=== PATIENT | male | born 1990 | race Hispanic/Latino ===

== ENCOUNTER → 2020-05-17 | Day surgery (SDC) | payer OTHER ==
[~2020-05-17] MED LIST: LIDOCAINE HCL 2% LOCAL INJ 5 ML SDV VIAL INJ ONE; METOCLOPRAMIDE HCL 10 MG/2ML VIAL ONE; PANTOPRAZOLE 40 MG 10ML VIAL ONE; PROPOFOL IV EMULSION 10 MG/ML 20 ML VIAL ONE
[2020-05-17 08:30] VITALS: BP 116/86
--- NOTE | 2020-05-17 09:19 | Operative Report ---
DATE OF PROCEDURE: 05/17/2020 SURGEON: Fabricio Alberto MD PROCEDURE: EGD with biopsies. INDICATIONS FOR EGD: Upper abdominal pain, bloating. MEDICATIONS: The patient was done under MAC, please see anesthesiologist's note. PROCEDURE IN DETAIL: With the patient in the left lateral decubitus position, a flexible fiberoptic Olympus gastroscope was introduced into the esophagus under direct visualization without any difficulty. The GE junction appeared somewhat nodular and that was biopsied. There was some also patchy intense erythema in the distal esophagus. The scope was then advanced with ease into the stomach. Mucosa overlying the antrum and the body revealed some patchy erythema and low-grade edema, and biopsies were obtained and sent to stain for H. pylori. Pylorus was of normal contour and shape, was intubated with ease and the scope was advanced all the way to the second portion of the duodenum. Biopsies were obtained from the proximal second portion and the duodenal bulb to rule out sprue. The scope was then withdrawn back into the stomach and retroflexed, and mucosa overlying the fundus and the cardia appeared to be within normal limits. The scope was then straightened out, it was subsequently withdrawn, and the patient tolerated the procedure well. IMPRESSION: 1. Distal esophagitis. 2. GE junction somewhat nodular, biopsied. 3. Gastritis, biopsied, biopsies sent to stain for Helicobacter pylori. 4. Rule out sprue. PLAN: Follow up histology. Initiate Protonix 40 mg one p.o. q.a.m. before meals. Fabricio Alberto [place] [facility] [facility] [place] /[id number] cc: Chino Myers DO
== END | disposition home or self-care (01) ==
LOC: OR 05:55
PROVIDERS: ATTEND Internal Medicine Gastroenterology
DX: K29.70 Gastritis, unspecified, without bleeding (principal); K20.9 Esophagitis, unspecified; K21.9 Gastro-esophageal reflux disease without esophagitis; K59.09 Other constipation; I10 Essential (primary) hypertension; F41.9 Anxiety disorder, unspecified; F32.9 Major depressive disorder, single episode, unspecified; Z01.812 Encounter for preprocedural laboratory examination; Z11.59 Encounter for screening for other viral diseases; Z68.36 Body mass index [BMI] 36.0-36.9, adult
CPT/HCPCS: 43239; C9113; J2001; J2704; J2765; U0002

== ENCOUNTER → 2020-05-18 | Outpatient (CLI) | payer OTHER ==
--- NOTE | 2020-05-18 15:10 | Diagnostic Imaging Report ---
EXAM: Complete Abdominal Ultrasound INDICATION: ^[id number] ^[id number] ^GEN ABD PAIN COMPARISON: None. TECHNIQUE: Transverse and longitudinal images of the upper abdomen were obtained. FINDINGS: Liver: Size: 14.9 cm in the right midclavicular line, normal Appearance: Normal echogenicity, smooth contour Mass: No focal masses Spleen: Size: 10.5 cm in length, normal Echogenicity: Normal Mass: No focal masses Gallbladder: Stones/Sludge: Mobile echogenic shadowing calculus within the gallbladder lumen. Wall: 0.2 cm Appearance: No pericholecystic fluid or hydrops. Sonographic Carbajal's Sign: Negative Bile Ducts: Intrahepatic Ducts: No dilatation Extrahepatic Ducts: Common bile duct measures 0.3 cm, no dilatation Pancreas: Visualized portions of the pancreatic head, neck and proximal body are normal. Right Kidney: Size: 11.9 cm Echogenicity: Normal Parenchymal thickness: Normal Collecting System: No hydronephrosis Stone: None Cyst/Mass: None Left Kidney: Size: 12.3 cm Echogenicity: Normal Parenchymal thickness: Normal Collecting System: No hydronephrosis Stone: None Cyst/Mass: None Vessels: Aorta: Nonaneurysmal Inferior Vena Cava: Patent Main Portal Vein: 0.9 cm, normal size with hepatopetal flow. Free Fluid: No ascites or pleural effusion IMPRESSION: Cholelithiasis without sonographic findings of acute cholecystitis. Otherwise unremarkable abdominal ultrasound. Signed by: Dr. Cr Hutton M.D. on 05/18/2020 3:07 PM
== END ==
LOC: US 13:54
PROVIDERS: ATTEND Internal Medicine Gastroenterology
DX: R10.84 Generalized abdominal pain (principal)
CPT/HCPCS: 76700

== ENCOUNTER → 2020-06-08 | Outpatient (CLI) | payer OTHER ==
[~2020-06-08] MED LIST changes: -LIDOCAINE HCL 2% LOCAL INJ 5 ML SDV VIAL INJ ONE; -METOCLOPRAMIDE HCL 10 MG/2ML VIAL ONE; -PANTOPRAZOLE 40 MG 10ML VIAL ONE; +PANTOPRAZOLE SO40 MG PO; -PROPOFOL IV EMULSION 10 MG/ML 20 ML VIAL ONE
== END ==
LOC: NM 07:52
PROVIDERS: ATTEND Internal Medicine Gastroenterology
DX: K80.12 Calculus of gallbladder with acute and chronic cholecystitis without obstruction (principal)
CPT/HCPCS: 78227; A9537

== ENCOUNTER → 2020-06-22 | Day surgery (SDC) | payer OTHER ==
[2020-06-20 09:54] LABS: BASOPHILS % 0.1 % (0.0-1.0); EOSINOPHILS # (AUTO) 0.1 (0.0-0.4); EOSINOPHILS % 0.9 % (0.0-6.0); HEMATOCRIT 47.1 % (38.2-49.6); HEMOGLOBIN 15.5 g/dL (14.0-18.0); LYMPHOCYTES # (AUTO) 1.6 (1.0-3.2); MEAN CORPUSCULAR HEMOGLOBIN 28.5 pg (28-32); MEAN CORPUSCULAR HGB CONC 32.9 g/dL (31-35); MEAN CORPUSCULAR VOLUME 86.6 fL (81-99); MONOCYTES # (AUTO) 0.5 (0.2-0.8); MONOCYTES % 6.9 % (4.4-11.3); NEUTROPHILS # (AUTO) 4.7 (2.1-6.9); NEUTROPHILS % 68.8 % (38.7-80.0); PLATELET COUNT 210 x10e3/uL (140-360); RED BLOOD COUNT 5.44 x10e6/uL (4.3-5.7); RED CELL DISTRIBUTION WIDTH 12.9 % (11.7-14.4)
[2020-06-20 10:20] LABS: ALANINE AMINOTRANSFERASE 41 IU/L (0-55); ALBUMIN 4.6 g/dL (3.5-5.0); ALBUMIN/GLOBULIN RATIO 1.5 (0.8-2.0); ALKALINE PHOSPHATASE 68 IU/L (40-150); ANION GAP 11.1 mmol/L (8-16); BLOOD UREA NITROGEN 12 mg/dL (7-26); BUN/CREATININE RATIO 15 (6-25); CALCIUM 8.6 mg/dL (8.4-10.2); CARBON DIOXIDE 26 mmol/L (22-29); CHLORIDE 105 mmol/L (98-107); EST GLOMERULAR FILTRATION RATE > 60 ML/MIN (60-); GLUCOSE 94 mg/dL (74-118); POTASSIUM 4.1 mmol/L (3.5-5.1); SODIUM 138 mmol/L (136-145)
[~2020-06-22] MED LIST changes: +BUPIVACAINE 0.25% 30ML SDV INJ ONE; +DEXAMETHASONE SOD PHOS INJ 4 MG/ML VIAL ONE; +FENTANYL CITRATE/PF 100MCG/2 ML INJ ONE; +GLYCOPYRROLATE INJ 0.2 MG/ML VIAL ONE; +HYDROCODONE/APAP 7.5MG-325MG 1 EA TAB ONE; +KETOROLAC TROMETHAMINE 30 MG/ML VIAL ONE; +LIDOCAINE HCL 2% LOCAL INJ 5 ML SDV VIAL INJ ONE; +MIDAZOLAM HCL 2 MG/2 ML VIAL ONE; +NEOSTIGMINE 1 MG/ML 10ML VIAL ONE; +ONDANSETRON HCL INJ 2MG/ML 2ML 2 MG/ML VIAL ONE; +PROPOFOL IV EMULSION 10 MG/ML 20 ML VIAL ONE; +ROCURONIUM BROMIDE 10 MG/ML 5ML VIAL IV ONE; +SEVOFLURANE INHAL SOLN 250 ML PEN BTL ONE
--- NOTE | 2020-06-22 12:25 | Operative Report ---
DATE OF PROCEDURE: SURGEON: Naveed Rollins MD PREOPERATIVE DIAGNOSES: 1. Cholelithiasis. 2. Cholecystitis. 3. Obesity. POSTOPERATIVE DIAGNOSES: 1. Cholelithiasis. 2. Cholecystitis. 3. Obesity. PROCEDURE PERFORMED: Laparoscopic cholecystectomy. ANESTHESIA: General endotracheal. ESTIMATED BLOOD LOSS: Minimal. DRAINS: None. COMPLICATIONS: None. BILLIARD PARLOR MANAGER: Sia Lovelace, licensed surgical forceps fabricator. INDICATION AND FINDINGS: The patient is a 29-year-old male who for the last several months has been complaining of upper abdominal pain, fatty food intolerance. He was found to have gallstones and had an ejection fraction of 0. He also had an EGD that revealed mild gastritis. INTRAOPERATIVE FINDINGS: Adhesions of the omentum to the gallbladder, consistent with chronic cholecystitis. There was a large single stone. There was no ductal dilatation. The cystic duct was short and not dilated nor was the common bile duct. DESCRIPTION OF PROCEDURE: With the patient lying on the operative table in supine position after administration of general anesthesia, he was prepped and draped for laparoscopic cholecystectomy. The procedure was begun by establishing a pneumoperitoneum in the right upper quadrant midclavicular line because the patient was rather large with a BMI of greater than 37. The pneumoperitoneum was insufflated to 15 mm of pressure and then a 10/11 trocar placed in that location under direct vision with the camera. We placed a 10 mm subxiphoid port and 2 lateral working ports in the right upper quadrant using 5 mm size. We then began the laparoscopy. The gallbladder was identified, had omental adhesions. The gallbladder was then retracted cephalad using grasping forceps through the two 5 mm trocars and then we detached the omentum from the gallbladder and then with traction and counter traction on the gallbladder, we began the dissection exposing the cystic duct, which the gallbladder was filled with bile, somewhat tensed. We continued the dissection high in the neck of the gallbladder until we identified the cystic duct which was short. We identified the common bile duct. After we saw the junction with the common duct and felt as the common hepatic duct and the main cystic artery, we went ahead and clipped the cystic duct between titanium clips as well as the main cystic artery and then continued the dissection cephalad using traction, countertraction, electrocautery. We found the posterior small branch that was cauterized and clipped and then we continued the dissection until we detached the gallbladder from the liver bed. We then suctioned the gallbladder out prior to extraction. Then, the gallbladder was removed through the umbilical port. We reinstituted the pneumoperitoneum. We irrigated out the right upper quadrant gallbladder bed fossa until the effluent fluid was clear and then we placed the omentum in the gallbladder fossa. We did not find any evidence of bile leak or bleeding or apparent bowel injury. We then went ahead and released the pneumoperitoneum under direct vision with the camera and closed the wound using 0-Vicryl for the umbilical fascia, 3-0 Vicryl for the subcutaneous tissue in that location as well as the subxiphoid port and the skin of all the ports was closed using prasanna. 0.25% Marcaine with epinephrine was given as local block at the end of the case. The patient tolerated the procedure well, was taken to recovery room in stable condition. MD SUSANNAH Pastor/JUDIE /[id number]
[2020-06-22 12:40] VITALS: BP 120/73
== END | disposition home or self-care (01) ==
LOC: OR 07:00
PROVIDERS: ATTEND Surgery
DX: K80.10 Calculus of gallbladder with chronic cholecystitis without obstruction (principal); E66.9 Obesity, unspecified; K21.9 Gastro-esophageal reflux disease without esophagitis; Z01.812 Encounter for preprocedural laboratory examination; Z11.59 Encounter for screening for other viral diseases; Z68.37 Body mass index [BMI] 37.0-37.9, adult
CPT/HCPCS: 36415; 47562; 80053; 85025; 88304; C1766; J1100; J1885; J2001; J2250; J2405; J2704; J2710; J3010; U0002